=== PATIENT | female | born 1985 | race Caucasian/White ===

== ENCOUNTER 2016-07-01 15:04 | Emergency (ER) | payer OTHER ==
[~2016-07-01] VITALS: Ht 152.4 cm; Wt 102.1 kg
[~2016-07-01 15:04] MED LIST: CYCLOBENZAPRINE10 M1 PO; PERCOCET 5-3251 EACH PO; ZIPSOR25 M1 PO
--- NOTE | 2016-07-01 15:52 | ED CARDIAC/CP/PALPITATIONS ---
History of Present Illness General Chief Complaint: General Adult Stated Complaint: DUE CHEST PAIN ,PALPITATION Source: patient, old records Exam Limitations: no limitations Vital Signs & Intake/Output Vital Signs & Intake/Output Vital Signs Date Time Temp Pulse Resp B/P Pulse O2 O2 Flow FiO2 Ox Delivery Rate 07/01 1656 98.3 96 18 128/75 97 Room Air 07/01 1518 97.4 118 18 130/86 96 Room Air ED Intake and Output 07/02 0000 07/01 1200 Intake Total Output Total Balance Patient 225 lb Weight Allergies Coded Allergies: No Known Allergies (07/15/15) Reconcile Medications Cephalexin (Keflex) 500 MG CAPSULE 1 CAP PO TID PRN folliculitis Triage Note: C/O PALPITATIONS AND CHEST PRESSURE SINCE LAST PM. STATES SHE HAS A HX OF PANIC ATTACKS AND SHE IS UNDER A LOT OF STRESS DUE TO FATHER'S HOSPITALIZATION. EKG DONE ON ARRIVAL Triage Nurses Notes Reviewed? yes Onset: Abrupt Duration: day(s): (2), constant, waxing and waning Timing: recent history Quality/Severity: mild, moderate, aching Location: substernal Radiation: no radiation Activities at Onset: emotional stress Prior Chest Pain/Card Workup: no prior chest pain Aspirin Today: 81 mg x 1 Associated Symptoms: palpitations : No Patient currently breastfeeds: No HPI: 31-year-old female with no known medical history presents emergency room for evaluation today complaining of substernal chest pressure nonradiating associated with intermittent palpitations for the past 2 days. The patient states the symptoms came on while she was visiting her father who is in the hospital currently for A. fib. She states that she believes she had a panic attack while in the hospital visiting him when his heart rate went up and they needed to control his heart rate. The patient denies any shortness of breath or pain with inspiration no history of similar episodes in the past however states she has not been seen by doctor in several years. She does not smoke no recent immobility or leg swelling of the abdominal pain nausea vomiting or diarrhea. Patient states she does have a history of panic attacks in the past and believes that this is what causing the symptoms today she's been under increased stress with her father being in the hospital, her mother recently had a stroke and recent illness with her dog. The patient took an aspirin, symptoms are not worse with change in position or exertion or no other modifying factors or associated symptoms. She is also complaining of a red rash and small bump to her left groin that she' s had for the past few days. She denies history of similar symptoms in the past no known injury trauma or insect bite no fever no chills no other rash to her skin (ANDREE LOPEZ) Past History Travel History Traveled to [place] past 21 day No Medical History Any Pertinent Medical History? none Neurological: NONE EENT: NONE Cardiovascular: NONE Respiratory: NONE Gastrointestinal: NONE Hepatic: NONE Renal: NONE Musculoskeletal: NONE Psychiatric: NONE Endocrine: NONE Surgical History Surgical History: non-contributory Psychosocial History What is your primary language Danish Tobacco Use: Current Daily Use Daily Tobacco Use Amount/Type: => 5 Cigarettes daily ETOH Use: denies use Family History Hx Contributory? No (ANDREE LOPEZ) Review of Systems Review of Systems Constitutional: Reports: see HPI. All Other Systems: Reviewed and Negative Comments Review of systems: See HPI, All other systems negative. Constitutional, no chills no fever, no malaise HEENT: no sore throat no congestion, Cardiovascular:chest pain , palpitation , no orthopnea no ankle swelling Skin, no jaundice no rashes, no change in skin Respiratory: No dyspnea no cough no sputum no hemoptysis GI: No nausea no vomiting, no diarrhea : No dysuria Muscle skeletal: No joint pain, no joint swelling, no back pain, no neck pain, Neurologic: No numbness no confusion, no headache Psych: stress no depression,. Heme/endocrine: No bruising no bleeding Immunology: No lymphadenopathy (ANDREE LOPEZ) Physical Exam Physical Exam General Appearance: well developed/nourished, no apparent distress, alert, awake Cardiovascular: tachycardia Comments: Well-developed well-nourished person in no acute distress HEENT: Normal EENT exam; PERRL, EOMI. HEAD is atraumatic. moist mucous membranes. Neck: Supple, normal range of motion Back: Nontender, no CVA tenderness. Full range of motion Cardiovascular: Tachycardic, regular rhythm, no murmurs rubs or gallops, normal JVP Respiratory: Chest nontender.There were no bony deformities, no asymmetry. No respiratory distress. Patient speaking in full complete sentences. Breath sounds clear to auscultation bilaterally: NO W/R/R Abdomen: Soft, nontender nondistended Extremity: No edema, full range of motion of extremities Neuro: Alert oriented x3, motor sensory normal, There were no obvious focal neurologic abnormalities. Skin: There is a small 1 cm area of induration noted over the left inguinal region overlying erythema minimal tenderness palpation no fluctuance, skin is warm and dry. Psych: Mood and affect is normal, memory and judgment is normal. Core Measures ACS in differential dx? Yes Severe Sepsis Present: No Septic Shock Present: No (LANA HOUSTON,ANDREE) Progress Differential Diagnosis: AMI, aortic dissection, atrial fibrillation, musculoskeletal pain, myocarditis, pericarditis, pneumonia, pneumothorax, pulmonary embolism, PVCs/PACs, unstable angina Plan of Care: Orders Procedure Date/time Status THYROID STIMULATING HORMONE 07/01 1601 Complete TROPONIN LEVEL 07/01 1601 Complete HUMAN BETA HCG SCREEN 07/01 1601 Complete D-DIMER 07/01 1601 Complete COMPREHENSIVE METABOLIC PANEL 07/01 1601 Complete CBC WITHOUT DIFFERENTIAL 07/01 1601 Complete EKG 07/01 1507 Active Laboratory Tests 07/01/16 1623: Anion Gap 16, Estimated GFR > 60, BUN/Creatinine Ratio 20.0, Glucose 99, Calcium 10.5 H, Total Bilirubin 0.6, AST 42 H, ALT 57 H, Alkaline Phosphatase 108, Troponin I < 0.01, Total Protein 8.6 H, Albumin 4.9, Globulin 3.7, Albumin/ Globulin Ratio 1.3, TSH 1.630, Total Beta HCG NEGATIVE, D-Dimer 242 H, CBC w Diff NO MAN DIFF REQ, RBC 5.08, MCV 83.1, MCH 26.9 L, RDW 15.9 H, MPV 9.8, Gran % 77.6 H, Lymphocytes % 17.5 L, Monocytes % 3.7, Eosinophils % 1.0, Basophils % 0.2, Absolute Granulocytes 11.6 H, Absolute Lymphocytes 2.6, Absolute Monocytes 0.5, Absolute Eosinophils 0.2, Absolute Basophils 0, PUBS MCHC 32.3 L Labs ordered old records reviewed patient is in no apparent distress at this time case was discussed with Dr. Combs. 07/01/2016 6:35:01 PM patient states she is feeling more calm and relaxed she denies symptoms at this time. Discussed with her apparently all of her lab results pending CAT scan I discussed with the patient at length all of their results. I had an extensive conversation regarding need for close follow up with their primary care physician this week as well as return precautions. I answered all of their questions, they feel comfortable with the plan and follow-up care. 07/01/2016 6:45:26 PMI discussed with the patient at length all of their results. I had an extensive conversation regarding need for close follow up with their primary care physician this week as well as return precautions. I answered all of their questions, they feel comfortable with the plan and follow-up care. I discussed the medications that they will receive with the patient. I gave them signs and symptoms that could indicate an adverse reaction. I have advised them to limit their activities until they can see how they respond to the medication. (LAAN HOUSTON,ANDREE) Diagnostic Imaging: Viewed by Me: CT Scan. Discussed w/RAD: CT Scan. Radiology Impression: PATIENT: NOY MELGAR PRESENT AGE: 31 PATIENT ACCOUNT NO: [id number] : 86 LOCATION: [facility] ORDERING PHYSICIAN: ANDREE HOUSTON SERVICE DATE: 07/01/16 EXAM TYPE: CAT - CTA CHEST-PULMONARY EMBOLISM EXAMINATION: CT ANGIOGRAM CHEST WITH AND WITHOUT CONTRAST (CT PULMONARY ANGIOGRAM FOR PE) CLINICAL INFORMATION: Chest pain. Evaluate for a pulmonary embolism. COMPARISON: No relevant prior studies are available for comparison. TECHNIQUE: Prior to contrast administration, noncontrast localization images were obtained. Subsequently, multidetector volumetric imaging was performed from the thoracic inlet to below the diaphragms following the administration of 51 mL Optiray 350 intravenous contrast. No contrast reaction reported. Sagittal, coronal, and MIP oblique sagittal reformatted images were obtained on the CT workstation, uploaded to PACS, and reviewed. Total exam dose-length product 552.47 mGy-cm. FINDINGS: QUALITY OF STUDY/CONTRAST BOLUS: Satisfactory. PULMONARY ARTERIES: No central or segmental pulmonary emboli. THORACIC AORTA: No aneurysm or dissection. LUNG: No focal consolidation, nodules or masses. PLEURA: No pleural effusion or pneumothorax. MEDIASTINUM: Normal heart size. No pericardial effusion. No hilar or mediastinal lymphadenopathy. No evidence of septal bowing or right heart strain. CHEST WALL/AXILLA: No axillary or internal mammary lymphadenopathy. OSSEOUS STRUCTURES: No acute or suspicious osseous abnormality. UPPER ABDOMEN: Unremarkable. No reflux of contrast into the hepatic veins to suggest elevated right heart pressures. IMPRESSION: 1. No central or segmental pulmonary embolism. 2. Clear lungs. VTE: Negative. DICTATED BY: ULYSSES DE LA TORRE MD DATE/ TIME DICTATED:07/01/161824 MECHANIST:KAPIL DATE/TIME TRANSCRIBED: 07/01/161824 CONFIDENTIAL, DO NOT COPY WITHOUT APPROPRIATE AUTHORIZATION. < Electronically signed in Other Vendor System> SIGNED BY: ULYSSES DE LA TORRE MD 07/01/161836 Initial ED EKG: SINUS TACH AT 110, NO ACUTE st SEGMENT CHANGES NORMAL AXIS (ANDREE LOPEZ) Departure Departure Time of Disposition: 1842 Disposition: HOME OR SELF CARE Condition: Stable Clinical Impression Primary Impression: Atypical chest pain Secondary Impressions: Folliculitis Referrals: GAEL DELUNA,ARRON Ni (PCP/Family) Additional Instructions: keflex for skin infection. follow up with your pmd dr walker next week. tylenol or motrin as needed. return with any concerns. Departure Forms: Customer Survey General Discharge Information Prescriptions: Current Visit Scripts Cephalexin (Keflex) 1 CAP PO TID PRN folliculitis #21 CAP (ANDREE LOPEZ) PA/MANAGER INVENTORY CONTROL Co-Sign Statement Statement: ED Attending supervision documentation- [] I saw and evaluated the patient. I have also reviewed all the pertinent lab results and diagnostic results. I agree with the findings and the plan of care as documented in the PA's/MANAGER INVENTORY CONTR[employer]'s documentation. [X] I have reviewed the ED Record and agree with the PA's/MANAGER INVENTORY CONTROL's documentation. [] Additions or exceptions (if any) to the PAs/MANAGER INVENTORY CONTROL's note and plan are summarized below: [] (NIKOLE DELUNA,TIMMY French) Critical Care Note Critical Care Note Critical Care Time: non-applicable (ANDREE LOPEZ)
[2016-07-01 16:43] LABS: ABSOLUTE BASOPHIL COUNT 0 /CUMM (0.0-0.2); ABSOLUTE EOSINOPHIL COUNT 0.2 /CUMM (0.0-0.7); ABSOLUTE GRANULOCYTE CT 11.6 /CUMM (1.4-6.5); ABSOLUTE LYMPH COUNT 2.6 /CUMM (1.2-3.4); ABSOLUTE MONOCYTE COUNT 0.5 /CUMM (0.10-0.60); BASOPHIL % 0.2 % (0.0-2.0); GRANULOCYTE % 77.6 % (42.2-75.2); HEMATOCRIT 42.2 % (37-47); MEAN CORPUSCULAR HGB 26.9 PG (27.0-31.0); MEAN CORPUSCULAR HGB CONC 32.3 G/DL (33.0-37.0); MEAN CORPUSCULAR VOLUME 83.1 FL (81.0-99.0); MEAN PLATELET VOLUME 9.8 FL (7.4-10.4); PLATELET COUNT 208 /CUMM (130-400); RBC DISTRIBUTION WIDTH 15.9 % (11.5-14.5); RED BLOOD CELL CT 5.08 /CUMM (4.20-5.40)
[2016-07-01 16:56] VITALS: BP 128/75
--- NOTE | 2016-07-01 18:37 | CT SCAN REPORT ---
EXAMINATION: CT ANGIOGRAM CHEST WITH AND WITHOUT CONTRAST (CT PULMONARY ANGIOGRAM FOR PE) CLINICAL INFORMATION: Chest pain. Evaluate for a pulmonary embolism. COMPARISON: No relevant prior studies are available for comparison. TECHNIQUE: Prior to contrast administration, noncontrast localization images were obtained. Subsequently, multidetector volumetric imaging was performed from the thoracic inlet to below the diaphragms following the administration of 51 mL Optiray 350 intravenous contrast. No contrast reaction reported. Sagittal, coronal, and MIP oblique sagittal reformatted images were obtained on the CT workstation, uploaded to PACS, and reviewed. Total exam dose-length product 552.47 mGy-cm. FINDINGS: QUALITY OF STUDY/CONTRAST BOLUS: Satisfactory. PULMONARY ARTERIES: No central or segmental pulmonary emboli. THORACIC AORTA: No aneurysm or dissection. LUNG: No focal consolidation, nodules or masses. PLEURA: No pleural effusion or pneumothorax. MEDIASTINUM: Normal heart size. No pericardial effusion. No hilar or mediastinal lymphadenopathy. No evidence of septal bowing or right heart strain. CHEST WALL/AXILLA: No axillary or internal mammary lymphadenopathy. OSSEOUS STRUCTURES: No acute or suspicious osseous abnormality. UPPER ABDOMEN: Unremarkable. No reflux of contrast into the hepatic veins to suggest elevated right heart pressures. IMPRESSION: 1. No central or segmental pulmonary embolism. 2. Clear lungs. VTE: Negative.
[2016-07-01] MEDS ORDERED: KEFLEX500 M1 PO (18:43)
== END 2016-07-01 18:52 ==
LOC: ERH 15:04
PROVIDERS: Physician Assistant Medical
DX: R07.89 Other chest pain (principal); L73.9 Follicular disorder, unspecified
CPT/HCPCS: 93005; 93010